=== PATIENT | male | born 1990 | race Caucasian/White ===

== ENCOUNTER 2017-06-03 09:09 | Emergency (ER) | payer SELFPAY ==
[~2017-06-03] VITALS: Ht 180.3 cm; Wt 111.4 kg
[2017-06-03 09:12] VITALS: BP 138/81; PULSE 60; TEMP 98.1
[2017-06-03] MEDS ORDERED: AMOXICILLIN 50500 MG PO (09:57)
[2017-06-03] MEDS ORDERED: NORCO 325 MG-51 TAB PO (10:05)
== END 2017-06-03 10:45 | disposition home or self-care (01) ==
LOC: COL.ER 09:09
DX: K08.89 Other specified disorders of teeth and supporting structures (principal); K02.9 Dental caries, unspecified

== ENCOUNTER 2018-03-04 20:50 | Emergency (ER) | payer SELFPAY ==
[~2018-03-04] VITALS: Ht 180.3 cm; Wt 111.0 kg
[~2018-03-04 20:50] MED LIST: AMOXICILLIN 50500 MG PO; NORCO 325 MG-51 TAB PO
[2018-03-04 21:02] VITALS: BP 135/93; PULSE 94; TEMP 98.7
[2018-03-04] MEDS ORDERED: BACTRIM DS 8001 TAB PO (22:14)
== END 2018-03-04 22:31 | disposition home or self-care (01) ==
LOC: COL.ER 20:50
DX: L08.9 Local infection of the skin and subcutaneous tissue, unspecified (principal)

== ENCOUNTER 2018-08-11 19:40 | Emergency (ER) | payer SELFPAY ==
[~2018-08-11] VITALS: Ht 180.3 cm; Wt 105.0 kg
[~2018-08-11 19:40] MED LIST changes: +BACTRIM DS 8001 TAB PO
[2018-08-11 19:45] VITALS: TEMP 97.3
[2018-08-11 20:54] LABS: BASO % 0.3 % (0.0-2.0); EOS # 0.2 (0.0-0.7); EOS % 1.7 % (0-4.0); GRAN # 6.8 (1.4-6.5); GRAN % 61.2 % (42.2-75.2); LYMPH # 3.2 (1.2-3.4); LYMPH % 28.9 % (20.0-51.0); MEAN CELL VOLUME 88 fl (80.0-100.0); MEAN CORPUSCULAR HEMOGLOBIN 30 pg (27.0-31.0); MEAN CORPUSCULAR HGB CONC 34 g/dl (33.0-37.0); MEAN PLATELET VOLUME 9.9 fl (7.4-10.4); MONO # 0.8 (0.1-0.6); MONO % 7.3 % (1.7-9.3); PLATELET COUNT 326 K/mm3 (130-400); RED BLOOD COUNT 5.01 M/mm3 (4.20-5.60); REDCELL DISTRIBUTION WIDTH-CV 12.4 % (11.5-14.5)
[2018-08-11 21:02] LABS: ALBUMIN 4.5 gm/dL (3.5-5.0); BILIRUBIN,TOTAL 0.3 mg/dL (0.0-1.0); CALCIUM 9.2 mg/dL (8.4-10.2); CREATININE, serum 0.77 mg/dL (0.66-1.25); POTASSIUM 4.1 mmol/L (3.4-5.0); TOTAL PROTEIN 8.3 gm/dL (6.4-8.2)
[2018-08-11] MEDS ORDERED: AMOXICILLIN 8751 TAB PO (22:32)
[2018-08-11 22:39] LABS: GLUCOSE,CSF 78 mg/dL (40-70); TOTAL PROTEIN,CSF 41 mg/dL (15-45)
[2018-08-11 23:51] LABS: CSF APPEARANCE CLEAR; CSF COLOR COLORLESS
[2018-08-11 23:52] LABS: CSF APPEARANCE CLEAR; CSF COLOR COLORLESS; CSF RBC 2 /mm3 (0-0); CSF RBC 25 /mm3 (0-0)
[2018-08-12 00:10] VITALS: BP 116/80; PULSE 76
[2018-08-12 00:13] LABS: CSF POLYMORPHONUCLEAR 4 % (0-6)
[2018-08-12 00:14] LABS: CSF MONONUCLEAR 96 % (70-100)
[2018-08-12 00:16] LABS: CSF MONONUCLEAR 100 % (70-100)
[2018-08-12 00:17] LABS: CSF POLYMORPHONUCLEAR 0 % (0-6)
== END 2018-08-12 00:12 | disposition home or self-care (01) ==
LOC: COL.ER 19:40
PROVIDERS: Emergency Medicine
DX: R51 Headache (principal); J32.9 Chronic sinusitis, unspecified; F17.210 Nicotine dependence, cigarettes, uncomplicated
CPT/HCPCS: J1200; J2270; J2765; J7030; Q9967